=== PATIENT | male | born 1970 | race Caucasian/White ===

== ENCOUNTER → 2024-05-02 | Outpatient (CLI) | payer OTHER ==
[2024-05-02 18:38] LABS: Hematocrit 42.8 % (37.0-53.0); Mean Corpuscular HGB 30.9 pg (26.0-34.0); Mean Corpuscular Volume 88 fL (80-100); Mean Platelet Volume 11.6 fL (9.1-12.4); Platelet Count 178 K/mm3 (150-400); RDW Coefficient Variation 12.2 % (11.7-14.2); RDW Standard Deviation 39.5 fL (35.1-46.3); Red Blood Cell Count 4.85 M/mm3 (4.30-5.90); White Blood Cell Count 4.27 K/mm3 (4.00-11.30)
[2024-05-02 18:51] LABS: Albumin, Blood 3.7 g/dL (3.4-5.0); Albumin/Globulin Ratio 0.9 (0.8-1.8); Bilirubin, Total 0.6 mg/dL (0.1-1.0); Bun/Creatinine Ratio 14.8 (12.0-20.0); Calcium, Blood 9.3 mg/dL (8.5-10.1); Creatinine, Blood 0.88 mg/dL (0.60-1.20); Globulin, Blood 3.9 g/dL (2.2-4.0); Potassium, Blood 4.2 mmol/L (3.5-5.5); Total Protein, Blood 7.6 g/dL (6.4-8.2)
== END | disposition home or self-care (01) ==
LOC: LAB 18:28 → LAB SHORT 18:28
PROVIDERS: Physician Assistant
DX: E11.65 Type 2 diabetes mellitus with hyperglycemia (principal)
CPT/HCPCS: 80053; 83036; 85027

== ENCOUNTER 2024-12-13 14:20 | Emergency (ER) | payer OTHER ==
[~2024-12-13] VITALS: Ht 190.5 cm; Wt 115.7 kg
[2024-12-13 15:04] LABS: BASOPHILS ABSOLUTE AUTO 0.02 K/mm3 (0.00-0.23); BASOPHILS PERCENT AUTO 0 % (0-2); EOSINOPHILS ABSOLUTE AUTO 0.24 K/mm3 (0.00-0.68); EOSINOPHILS PERCENT AUTO 5 % (0-6); Hematocrit 40.8 % (37.0-53.0); Hemoglobin 14.0 g/dL (13.5-17.5); IMMATURE GRAN ABSOLUTE AUTO 0.03 K/mm3 (0.00-0.10); IMMATURE GRAN PERCENT AUTO 1 % (0-1); LYMPHOCYTES ABSOLUTE AUTO 1.66 K/mm3 (0.84-5.20); LYMPHOCYTES PERCENT AUTO 35 % (21-46); MONOCYTES ABSOLUTE AUTO 0.32 K/mm3 (0.16-1.47); MONOCYTES PERCENT AUTO 7 % (4-13); Mean Corpuscular HGB Conc 34.3 g/dL (31.5-36.5); Mean Corpuscular Volume 88 fL (80-100); NEUTROPHILS ABSOLUTE AUTO 2.50 K/mm3 (1.96-9.15); NEUTROPHILS PERCENT AUTO 53 % (41-73); NRBC ABSOLUTE 0.00 K/mm3 (0.00-0.02); NRBC Auto 0.0 /100 WBC (0.0-0.2); Platelet Count 171 K/mm3 (150-400); RDW Coefficient Variation 11.9 % (11.7-14.2); RDW Standard Deviation 38.2 fL (35.1-46.3)
[2024-12-13 15:31] LABS: Alanine Aminotransfer (ALT/SGP 30.0 U/L (12-78); Albumin, Blood 3.3 g/dL (3.4-5.0); Albumin/Globulin Ratio 0.8 (0.8-1.8); Anion Gap 7.0 mmol/L (3-11); Aspartate Aminotrans (AST/SGOT 23.0 U/L (12-37); Bilirubin, Total 0.5 mg/dL (0.1-1.0); Blood Urea Nitrogen 16.0 mg/dL (8-24); CO2, Blood 24.0 mmol/L (21-32); Calcium, Blood 8.7 mg/dL (8.5-10.1); Chloride, Blood 105.0 mmol/L (98-108); Creatinine, Blood 1.27 mg/dL (0.60-1.20); Globulin, Blood 4.1 g/dL (2.2-4.0); Glucose, Blood 352.0 mg/dL (70-99); Potassium, Blood 4.3 mmol/L (3.5-5.5); Sodium, Blood 132.0 mmol/L (136-145); Total Protein, Blood 7.4 g/dL (6.4-8.2)
[2024-12-13] MEDS ORDERED: AMOX-CLAV 875-1 EAC5 PO (16:28)
[2024-12-13] MEDS ORDERED: ROSUVASTATIN CA10 MG PO (16:28)
[2024-12-13] MEDS ORDERED: TACROLIMUS PO (16:28)
[2024-12-13] MEDS ORDERED: SULFAMETHOXAZO1 EAC1 PO (16:28)
[2024-12-13] MEDS ORDERED: TADALAFIL2.5 MG PO (16:29)
[2024-12-13] MEDS ORDERED: BASAGLAR K100 UNIT/3 SC (16:29)
[2024-12-13] MEDS ORDERED: [UNRECOGNIZED DRUG - CODE] PO (16:29)
[2024-12-13] MEDS ORDERED: Aspir 8181 MG PO (16:29)
[2024-12-13] MEDS ORDERED: Cellcept500 MG PO (16:29)
[2024-12-13 20:50] VITALS: BP 122/83
== END 2024-12-13 20:50 | disposition home or self-care (01) ==
LOC: ER 14:20
PROVIDERS: Emergency Medicine
DX: L02.211 Cutaneous abscess of abdominal wall (principal); E11.65 Type 2 diabetes mellitus with hyperglycemia; I10 Essential (primary) hypertension; Z94.4 Liver transplant status; Z79.4 Long term (current) use of insulin
CPT/HCPCS: 10060; 80053; 85025; 87070; 87075; 87077; 87147; 87186; 87205; 99284-25

== ENCOUNTER 2025-01-03 08:27 | Day surgery (SDC) | payer OTHER ==
[~2025-01-03] VITALS: Ht 190.5 cm; Wt 113.6 kg
[~2025-01-03 08:27] MED LIST: AMOX-CLAV 875-1 EAC5 PO; Aspir 8181 MG PO; BASAGLAR K100 UNIT/3 SC; Cellcept500 MG PO; ROSUVASTATIN CA10 MG PO; SULFAMETHOXAZO1 EAC1 PO; TACROLIMUS PO; TADALAFIL2.5 MG PO; [UNRECOGNIZED DRUG - CODE] PO
[2025-01-03] MEDS ORDERED: TALTZ AUTO80 MG/1 M1 (09:39)
[2025-01-03] MEDS ORDERED: CLAR500 PO (09:40)
[2025-01-03] MEDS ORDERED: PRED20 PO (09:40)
[2025-01-03] MEDS ORDERED: EPINEPhrine HCl 1 MG / ML 30ML Vial ONE (09:46)
[2025-01-03] MEDS ORDERED: Lidocaine 1%-Epineph 1:200000 30 ML SDV ONE (09:46)
[2025-01-03 09:54] VITALS: BP 131/92
[2025-01-03] MEDS ORDERED: Insulin Regular 100 UNIT/ML 10ML Vial ONE (09:54)
--- NOTE | 2025-01-03 10:03 | NUR ---
01/03/25 [facility] RIVAS NOTIFIED THAT BLOOD SUGAR IS 461. DR RIVAS GAVE ORDER FOR REGULAR INSULIN 5 UNITS IV NOW X1 AND 10 UNITS SUBCUTANEOUS X1 NOW.
== END 2025-01-03 11:25 | disposition home or self-care (01) ==
LOC: ORSCSDS 08:27
DX: J32.8 Other chronic sinusitis (principal); Z53.9 Procedure and treatment not carried out, unspecified reason
CPT/HCPCS: 82947; 93005; 93010; J0165; J1815; J7120

== ENCOUNTER 2025-03-30 07:51 | Day surgery (SDC) | payer OTHER ==
[~2025-03-30] VITALS: Ht 190.5 cm; Wt 116.5 kg
[~2025-03-30 07:51] MED LIST changes: +CLAR500 PO; +EPINEPhrine HCl 1 MG / ML 30ML Vial ONE; +Lidocaine 1%-Epineph 1:200000 30 ML SDV ONE; +PRED20 PO; +TALTZ AUTO80 MG/1 M1
[2025-03-30] MEDS ORDERED: Tranexamic Acid 100 ML IV ONE ×2 (08:43→15:02)
[2025-03-30] MEDS ORDERED: PREG150 PO (08:57)
[2025-03-30] MEDS ORDERED: FentaNYL Citrate 50 MCG/ML 2 ML Injection ONE ×3 (09:56→13:45)
--- NOTE | 2025-03-30 10:19 | NUR ---
03/30/25 1019 Roberta Montemayor PT UPDATED REGARDING THE DELAY. ROOM IS DELAYED DUE TO LAB UNABLE TO PROMPTLY PROCESS SPECIMEN. BLOOD FOR CHEM PANEL WAS AT LAB FOR PROCESSING AT 0900. LABS ARE STILL PENDING AT 1019. ROS ARROYO WOULD LIKE TO WAIT FOR LABS TO PROCEED WITH CASE. PT IS RESTING IN ROOM WITH LIGHTS OFF. CALL LIGHT IN REACH. WARM BLANKETS PROVIDED.
[2025-03-30 10:50] LABS: Alanine Aminotransfer (ALT/SGP 38.0 U/L (12-78); Albumin, Blood 3.6 g/dL (3.4-5.0); Albumin/Globulin Ratio 0.9 (0.8-1.8); Anion Gap 9.0 mmol/L (3-11); Aspartate Aminotrans (AST/SGOT 29.0 U/L (12-37); Bilirubin, Total 0.5 mg/dL (0.1-1.0); Blood Urea Nitrogen 16.0 mg/dL (8-24); CO2, Blood 26.0 mmol/L (21-32); Calcium, Blood 8.7 mg/dL (8.5-10.1); Chloride, Blood 106.0 mmol/L (98-108); Creatinine, Blood 1.2 mg/dL (0.60-1.20); Globulin, Blood 4.0 g/dL (2.2-4.0); Glucose, Blood 119.0 mg/dL (70-99); Potassium, Blood 3.8 mmol/L (3.5-5.5); Sodium, Blood 137.0 mmol/L (136-145); Total Protein, Blood 7.6 g/dL (6.4-8.2)
[2025-03-30] MEDS ORDERED: Midazolam HCl 1MG / ML 2ML Vial ONE (11:15)
[2025-03-30] MEDS ORDERED: Phenylephrine HCl 100 MCG/ML-NS 10MLSYR (1MG/10ML) ONE (11:33)
[2025-03-30] MEDS ORDERED: Dexamethasone Sod Phos 10 MG/ML 1ML VIAL ONE (12:06)
[2025-03-30] MEDS ORDERED: Ondansetron HCl 2 MG / ML 2ML Vial ONE ×2 (12:06→14:01)
[2025-03-30] MEDS ORDERED: EPINEPhrine HCl 1 MG / ML 30ML Vial ONE (12:43)
[2025-03-30] MEDS ORDERED: HYDROmorphone HCl/Pf 1MG SYR ONE (13:25)
--- NOTE | 2025-03-30 14:06 | NUR ---
03/30/25 1406 MICHAEL MARVIN PT SLEEPING AT PRESENT. O2 VIA NASAL CANNULA SET AT 2L, PLACED JUST UNDER UPPER LIP. GENTLE SNORING. DIPPED DOWN TO 88% SO INCREASED TO 4L. WILL MOVE TO RECLINER TO SEE IF THIS WILL HELP
[2025-03-30] MEDS ORDERED: Oxymetazoline 0.05% Nasal Relief Spray 15mL BTL ONE (15:02)
[2025-03-30 15:46] VITALS: BP 142/91
[2025-03-30] MEDS ORDERED: Metoclopramide HCl 5MG / ML 2ML Vial ONE (15:53)
== END 2025-03-30 16:40 | disposition home or self-care (01) ==
LOC: ORSCSDS 07:51
PROVIDERS: Otolaryngology
PROC: 0NB Head and Facial Bones, Excision (ICD-10-PCS; principal; 2025-03-30 09:45)
DX: J32.8 Other chronic sinusitis (principal); K21.9 Gastro-esophageal reflux disease without esophagitis; E11.9 Type 2 diabetes mellitus without complications; E66.9 Obesity, unspecified; Z68.32 Body mass index [BMI] 32.0-32.9, adult; Z94.4 Liver transplant status; Z79.4 Long term (current) use of insulin; Z79.899 Other long term (current) drug therapy; Z79.82 Long term (current) use of aspirin
CPT/HCPCS: 80053; 82947; 88305; A9270; C2625; J0165; J1100; J1171; J1790; J2250; J2371; J2405; J2704; J2765; J3010; J7120